=== PATIENT | female | born 1945 | race Caucasian/White ===

== ENCOUNTER 2022-07-24 12:02 | Inpatient (IN) | payer OTHER, MEDICAID ==
[~2022-07-24] VITALS: Ht 167.6 cm; Wt 65.8 kg
[2022-07-24 12:03] VITALS: BP 149/67
--- NOTE | 2022-07-24 12:04 | NUR ---
BIBA BLS TO ER BED 4
--- NOTE | 2022-07-24 12:20 | NUR ---
Pt A&O x4, complain of weakness in right side and pain over the whole body 3/10 since yesterday, tingling in the right leg, PERRL, brisk, neuro exam grossly normal, bilat hand custom grinder 4/5, adamaris leg push and pull 5/5, no facial asymmetry, speech clear, sr on cm, O2 sat 96%, BP 149/67, HR 90. no headache
[2022-07-24] MEDS ORDERED: NACL 0.9% 500 ML IV ONE (13:00)
[2022-07-24 13:52] LABS: BASOPHILS % (AUTO) 0.6 % (0.0-2.0); EOSINOPHILS # (AUTO) 0.1 K/uL (0-0.4); EOSINOPHILS % (AUTO) 0.8 % (0.0-4.0); HEMOGLOBIN 12.3 g/dL (12.0-16.0); LYMPHOCYTES # (AUTO) 1.5 K/uL (2.5-16.5); LYMPHOCYTES % (AUTO) 19.7 % (20.5-51.1); MEAN CORPUSCULAR HEMOGLOBIN 29 pg (27-31); MEAN CORPUSCULAR HGB CONC 33 g/dL (33-37); MEAN CORPUSCULAR VOLUME 85.8 fL (80-94); MONOCYTES # (AUTO) 0.5 K/uL (0.8-1.0); MONOCYTES % (AUTO) 6.6 % (1.7-9.3); NEUTROPHILS # (AUTO) 5.4 K/uL (1.8-7.7); NEUTROPHILS % (AUTO) 72.3 % (42.2-75.2); PLATELET COUNT (AUTO) 215 K/uL (140-450); RED BLOOD CELL COUNT(AUTO) 4.31 MIL/uL (4.20-5.40); RED CELL DISTRIBUTION WIDTH 15.2 % (11.6-13.7); WHITE BLOOD COUNT (AUTO) 7.5 K/uL (4.8-10.8)
[2022-07-24 14:29] LABS: ALBUMIN 3.1 g/dL (3.4-5.0); ANION GAP 8.6 (8-16); ASPARTATE AMINOTRANSFERASE 23 U/L (15-37); CARBON DIOXIDE 33.2 mmol/L (21-32); CHLORIDE 105 mmol/L (98-107); CREATININE 1.1 mg/dL (0.6-1.3); GLUCOSE 178 mg/dL (74-106); MAGNESIUM 1.6 mg/dL (1.8-2.4); PHOSPHORUS 3.1 mg/dL (2.5-4.9); POTASSIUM 3.8 mmol/L (3.5-5.1); SODIUM SERUM 143 mmol/L (136-145); TOTAL BILIRUBIN 0.4 mg/dL (0.0-1.0); UREA NITROGEN, BLOOD 26 mg/dL (7-18)
[2022-07-24 16:36] LABS: APPEARANCE,URINE CLEAR (CLEAR); BILIRUBIN,URINE NEGATIVE (NEGATIVE); BLOOD, URINE TRACE-I (NEGATIVE); COLOR,URINE YELLOW (YELLOW); LEUKOCYTE ESTERASE ,URINE NEGATIVE (NEGATIVE); NITRITE, URINE NEGATIVE (NEGATIVE); UGLUCOSE NEGATIVE (NEGATIVE)
[2022-07-24 17:07] LABS: RBC,URINE 0-5 /HPF (0-5)
[2022-07-24 17:08] LABS: TRICHOMONAS,URINE None Seen /HPF (None Seen); YEAST,URINE None Seen /HPF (None Seen)
[2022-07-24] MEDS ORDERED: POTASSIUM CHLORIDE 10 MEQ TABER PO PRN (17:15)
[2022-07-24] MEDS ORDERED: LORazepam 2 MG/ML VIAL IVP PRN (17:15)
[2022-07-24] MEDS ORDERED: DOCUSATE SODIUM 100 MG GELCAP PO PRN (17:15)
[2022-07-24] MEDS ORDERED: ONDANSETRON 4 MG/2 ML VIAL IVP PRN (17:15)
[2022-07-24] MEDS ORDERED: MAG SULF 2000 MG/WATER PREMIX 50 ML IV PRN (17:15)
[2022-07-24] MEDS ORDERED: MORPHINE SULFATE 2 MG/ML SYR IVP PRN (17:15)
[2022-07-24] MEDS ORDERED: ZOLPIDEM 10 MG TAB PO PRN (17:15)
[2022-07-24] MEDS ORDERED: ACETAMINOPHEN 325 MG TAB PO PRN (17:15)
[2022-07-24] MEDS ORDERED: GLIP5TER PO (17:22)
[2022-07-24] MEDS ORDERED: ATOR40TA PO (17:27)
[2022-07-24] MEDS ORDERED: FLO.1 PO (17:27)
[2022-07-24] MEDS ORDERED: DOXY-487 PO (17:29)
[2022-07-24] MEDS ORDERED: AMLO5TAB PO (17:29)
[2022-07-24] MEDS ORDERED: CRAN450T5 PO (17:31)
[2022-07-24] MEDS ORDERED: ESCI20TA PO (17:31)
--- NOTE | 2022-07-24 19:16 | NUR ---
Received report from SUMAYA Alonzo and continue care of patient.
--- NOTE | 2022-07-24 20:14 | NUR ---
Patient will be admitted to care of Dr. Macedo. Admited to TELE. Will go to room 110B. Belongings list completed. Report to SUMAYA An.
--- NOTE | 2022-07-24 20:25 | NUR ---
HAND-OFF REPORT RECEIVED FROM JULY RN. ADMITTED TO ROOM 110B PER SERVICES OF MD HUDSON. C/C RIGHT SIDE WEAKNESS. DX TIA. ANOX4 THOUGH HX OF ALZHEIMERS, DEMENTIA AND UTI. NSR PER DIESEL TRUCK CRANE OPERATOR. DENIES ALL PAIN. 20 G LAC/SL. CT SCAN OF HEAD NEGATIVE. MRSA SPECIMEN OBTAINED. VSS. CONT TO MONITOR. BED IN LOWEST POSITION AND CONTROLS WITHIN EASY REACH.
[2022-07-24 20:26] VITALS: BP 146/65
[2022-07-25] VITALS: BP 140/67
[2022-07-25 04:00] VITALS: BP 138/65
[2022-07-25 06:23] LABS: ANION GAP 7.6 (8-16); CARBON DIOXIDE 33.6 mmol/L (21-32); CHLORIDE 105 mmol/L (98-107); GLUCOSE 107 mg/dL (74-106); POTASSIUM 3.2 mmol/L (3.5-5.1); SODIUM SERUM 143 mmol/L (136-145); UREA NITROGEN, BLOOD 17 mg/dL (7-18)
[2022-07-25 06:49] LABS: BASOPHILS # (AUTO) 0.1 K/uL (0.00-0.22); BASOPHILS % (AUTO) 0.8 % (0.0-2.0); EOSINOPHILS # (AUTO) 0.1 K/uL (0-0.4); EOSINOPHILS % (AUTO) 2.2 % (0.0-4.0); HEMATOCRIT 39.9 % (36-48); HEMOGLOBIN 13.4 g/dL (12.0-16.0); LYMPHOCYTES # (AUTO) 1.7 K/uL (2.5-16.5); LYMPHOCYTES % (AUTO) 27.3 % (20.5-51.1); MEAN CORPUSCULAR HEMOGLOBIN 29 pg (27-31); MEAN CORPUSCULAR HGB CONC 34 g/dL (33-37); MEAN CORPUSCULAR VOLUME 85.7 fL (80-94); MONOCYTES # (AUTO) 0.5 K/uL (0.8-1.0); MONOCYTES % (AUTO) 8.4 % (1.7-9.3); NEUTROPHILS # (AUTO) 3.8 K/uL (1.8-7.7); NEUTROPHILS % (AUTO) 61.3 % (42.2-75.2); PLATELET COUNT (AUTO) 209 K/uL (140-450); RED BLOOD CELL COUNT(AUTO) 4.66 MIL/uL (4.20-5.40); RED CELL DISTRIBUTION WIDTH 15.2 % (11.6-13.7); WHITE BLOOD COUNT (AUTO) 6.3 K/uL (4.8-10.8)
--- NOTE | 2022-07-25 07:20 | NUR ---
PATIENT HAS BEEN SCREENED AND CATEGORIZED MODERATE NUTRITION RISK. PATIENT WILL BE SEEN WITHIN 3-5 DAYS OF ADMISSION. 07/24/22-07/29/[address]
--- NOTE | 2022-07-25 07:30 | NUR ---
ACU-CHECK 113 PRIOR TO BREAKFAST. ASYMPTOMATIC. HAND-OFF REPORT TO ELIEZER SHELL FOR CONTINUITY OF CARE. NO DIZZINESS THIS SHIFT WITH STANDBY ASSIST BRP. MOVES ALL EXTREMITIES WELL. ALTHOUGH STATES RIGHT SIDE WEAKNESS ASSISTANT IN NURSING AND PEDAL PUSHES EQUALLY STRONG. TO BE NOTED PT STATED HX OF ATTEMPTED SUICIDE X2 BY HANGING AND PILLS WHEN 28 AND 33 YRS OLD. PT IS NOW 77 WITHOUT FURTHER THOUGHTS OR ATTEMPTS. CONT. TO MONITOR AND ASSIST. HAND-OFF REPORT TO ELIEZER FOR CONTINUITY OF CARE.
[2022-07-25 08:00] VITALS: BP 145/68
[2022-07-25] MEDS: ATORVASTATIN 20 MG TAB PO SCH (08:53)
[2022-07-25] MEDS: ASPIRIN 81 MG TAB.CHEW PO SCH (08:53)
[2022-07-25 12:00] VITALS: BP 143/64
[2022-07-25 16:00] VITALS: BP 153/76
--- NOTE | 2022-07-25 18:44 | NUR ---
PATIENT IS ADMITTED FOR TRANSIENT ISCHEMIC ATTACK (TIA) D/T RECENT NEAR SYNCOPE/DIZZINESS W/ R. SIDE WEAKNESS. NURSE WITNESS THAT PATIENT AMBULATING TO BATHROOM W/ NO BALANCE ISSUE BUT NURSE DID NOTICE THAT PATIENT HAS SHORT MEMORY LOSE ISSUE/INTERMITTED CONFUSE. SBP RUNNIG FROM 140S TO 150S, ACCUCHECK 159 AFTER DINNER. WILL CONTINUE TO MONITOR
--- NOTE | 2022-07-25 19:30 | NUR ---
RECEIVED REPORT FROM DAY SHIFT NURSE JASWINDER FOR CONTINUITY OF CARE. PATIENT IS A&O X4. PATIENT IS ON ROOM AIR, BREATHING IS NORMAL WITH SYMMETRICAL RISE AND FALL OF CHEST. IV IS A 20G LAC, NO FLUIDS RUNNING AT THIS TIME. PATIENT IS AWAKE LYING SEMI-FOWLERS IN BED. BED IS IN LOWEST POSITION, WHEELS LOCKED, CALL LIGHT IN PLACE. WILL CONTINUE TO OBSERVE PATIENT.
--- NOTE | 2022-07-25 19:34 | NUR ---
ENDORSE PATIENT IN STABLE CONDITION TO PM SHIFT NURSE WITH F/U FOR MESSAGE DR. HUDSON REGARDING TO PATIENT'S DM MEDICATION ISSUE
[2022-07-25 20:00] VITALS: BP 108/48
[2022-07-26] VITALS: BP 128/56
--- NOTE | 2022-07-26 01:30 | NUR ---
PATIENT HAS BEEN SLEEPING THROUGHOUT THE NIGHT; LYING IN A SEMI-ONEILL POSITION. BREATHING IS NORMAL WITH SYMMETRICAL RISE AND FALL OF CHEST. WILL CONTINUE TO OBSERVE PATIENT.
[2022-07-26 04:00] VITALS: BP 151/74
--- NOTE | 2022-07-26 05:00 | NUR ---
PATIENT SLEPT THROUGHOUT THE NIGHT. BREATHING IS NORMAL WITH SYMMETRICAL RISE AND FALL OF CHEST. WILL CONTINUE TO OBSERVE PATIENT.
[2022-07-26 06:32] LABS: BASOPHILS % (AUTO) 0.5 % (0.0-2.0); EOSINOPHILS # (AUTO) 0.2 K/uL (0-0.4); EOSINOPHILS % (AUTO) 3.1 % (0.0-4.0); HEMATOCRIT 39.2 % (36-48); HEMOGLOBIN 12.9 g/dL (12.0-16.0); LYMPHOCYTES # (AUTO) 1.6 K/uL (2.5-16.5); LYMPHOCYTES % (AUTO) 21.1 % (20.5-51.1); MEAN CORPUSCULAR HEMOGLOBIN 29 pg (27-31); MEAN CORPUSCULAR HGB CONC 33 g/dL (33-37); MEAN CORPUSCULAR VOLUME 86.4 fL (80-94); MONOCYTES # (AUTO) 0.7 K/uL (0.8-1.0); MONOCYTES % (AUTO) 8.6 % (1.7-9.3); NEUTROPHILS # (AUTO) 5.1 K/uL (1.8-7.7); NEUTROPHILS % (AUTO) 66.7 % (42.2-75.2); PLATELET COUNT (AUTO) 218 K/uL (140-450); RED BLOOD CELL COUNT(AUTO) 4.54 MIL/uL (4.20-5.40); WHITE BLOOD COUNT (AUTO) 7.6 K/uL (4.8-10.8)
[2022-07-26] MEDS: BLOOD GLUCOSE MONITORING 1 DEV DEV FS SCH ×4 (06:59→20:15)
[2022-07-26 07:03] LABS: ANION GAP 7.9 (8-16); CARBON DIOXIDE 30.9 mmol/L (21-32); CHLORIDE 106 mmol/L (98-107); CREATININE 1.1 mg/dL (0.6-1.3); GLUCOSE 111 mg/dL (74-106); POTASSIUM 3.8 mmol/L (3.5-5.1); SODIUM SERUM 141 mmol/L (136-145); UREA NITROGEN, BLOOD 22 mg/dL (7-18)
--- NOTE | 2022-07-26 07:40 | NUR ---
ENDORSED TO DAY SHIFT NURSE JASWINDER FOR CONTINUITY OF CARE. PATIENT IS STABLE.
[2022-07-26 08:00] VITALS: BP 138/54
[2022-07-26] MEDS: ATORVASTATIN 20 MG TAB PO SCH (09:16)
[2022-07-26] MEDS: ASPIRIN 81 MG TAB.CHEW PO SCH (09:16)
[2022-07-26] MEDS ORDERED: MECLIZINE 25 MG TAB PO PRN (10:35)
[2022-07-26] MEDS ORDERED: POTASSIUM CHLORIDE 10 MEQ TABER PO PRN (10:35)
[2022-07-26] MEDS ORDERED: MAG SULF 2000 MG/WATER PREMIX 50 ML IV PRN (10:35)
[2022-07-26] MEDS: INSULIN LISPRO SLIDING SCALE 100 UNITS/ML VIAL SUBQ PRN ×2 (11:55→20:19)
[2022-07-26 12:00] VITALS: BP 135/59
--- NOTE | 2022-07-26 12:05 | NUR ---
DC PLANN[age] YRS OLD FEMALE PATIENT WAS ADMITTED FROM ASSISTED LIVING ([facility]) WITH A DX OF TIA. PATIENT HAS A HX OF HTN, HLD AND DM. CT HEAD SHOWED NO ACUTE INTRACRANIAL HEMORRHAGE. RAPID COVID TEST NEGATIVE. CONTINUED HOME MEDS. CONSULTED WITH NEURO . DC ABDIEL TO RETURN TO ASSISTED LIVING WHEN STABLE. CM TO FOLLOW. Addendum: 07/27/22 at 1632 by CONCEPCIÓN KOCH CM DC PLANNING MRI OF BRAIN WITH OUT CONTRAST DONE AT [facility].CONSTANCE BECKER READ THE OFFICIAL RESULT AND IS NEGATIVE.PATIENT TO GO BACK TO [facility].TALKED TO NICOLE WATTS.ASSISTED LIVING TO ARRANGE FOR HOME PT.ORDER FAXED TO .
--- NOTE | 2022-07-26 12:52 | NUR ---
DC PLANNING ASSESSMENT COMPLETE PLEASE REFER TO ASSESSMENT FOR ADDITIONAL DETAILS ATTEMPTED TO MEET WITH PT AT BEDSIDE, HOWEVER, PT SLIGHTLY CONFUSED AND STRUGGLED TO REMEMBER WHERE SHE WAS. PT DENIES RESIDING AT [facility]. OUTREACHED TO PT PUBLIC GUARDIAN TO GATHER COLLAT INFO HOWEVER, UNAVAILABLE. MESSAGE LEFT REQUESTING A RETURN PHONE CALL. COLLAT INFO GATHERED FROM [facility], KULWINDER. PT IS A 77 YR OLD FEMALE ADMITTED TO [facility], ASSISTED LIVING WITH DX OF TIA. PT IS REPORTED TO [employer] [facility]WW AND IS REPORTS TO COMPLETE ADL'S WITH MINIMAL ASSISTANCE AND TYPICALLY ONLY REQUIRES VERBAL REMINDERS. PT IS RESIDENT OF [facility], RESIDENT SINCE 10/02' PATIENT IS UNDER THE CARE OF [facility] PUBLIC GUARDIAN, HILLARY SUAREZ, . MS THORNTON IS REPORTED TO PROVIDE ALL MEDICAL CONSENTS REQUIRED. KULWINDER REPORTS TENTATIVE DC PLAN IS FOR PT TO RETURN TO [facility], ONCE CLEARED MEDICALLY BY PHYSICIAN. KULWINDER REPORTS FACILITY OCCASIONALLY PROVIDES TRANSPORTATION, HOWEVER, HOSPITAL TYPICALLY ARRANGES TRANSPORT WHEN PT RETURNS. SW TO ENDORSE TO CM. Addendum: 07/26/22 at 1253 by Ale BAILEY Amended: Links added.
--- NOTE | 2022-07-26 14:26 | NUR ---
P.T. NOTES P.T. EVAL COMPLETED; REFER TO EVAL FOR DETAILS.
[2022-07-26 16:00] VITALS: BP 115/40
--- NOTE | 2022-07-26 19:30 | NUR ---
ENDORSE PATIENT IN STABLE CONDITION AFTER NEUROLOGIST, DR. CASTELLON SEE PATIENT AND PT CLARIFY ORDER PRESENT.
[2022-07-26 20:00] VITALS: BP 107/49
[2022-07-27] VITALS: BP 162/147
--- NOTE | 2022-07-27 01:00 | NUR ---
PATIENT HAS SLEPT THROUGHOUT THE NIGHT. BREATHING IS NORMAL WITH SYMMETRICAL RISE AND FALL OF CHEST. WILL CONTINUE TO OBSERVE PATIENT.
[2022-07-27 04:00] VITALS: BP 147/63
--- NOTE | 2022-07-27 05:00 | NUR ---
PATIENT HAS SLEPT THROUGHOUT THE NIGHT. BREATHING IS NORMAL WITH SYMMETRICAL RISE AND FALL OF CHEST. WILL CONTINUE TO OBSERVE PATIENT.
[2022-07-27 06:28] LABS: ANION GAP 9.5 (8-16); BASOPHILS % (AUTO) 0.7 % (0.0-2.0); CARBON DIOXIDE 31.6 mmol/L (21-32); CHLORIDE 107 mmol/L (98-107); CREATININE 1.1 mg/dL (0.6-1.3); EOSINOPHILS # (AUTO) 0.3 K/uL (0-0.4); EOSINOPHILS % (AUTO) 4.9 % (0.0-4.0); GLUCOSE 111 mg/dL (74-106); LYMPHOCYTES # (AUTO) 1.9 K/uL (2.5-16.5); LYMPHOCYTES % (AUTO) 31.3 % (20.5-51.1); MEAN CORPUSCULAR HEMOGLOBIN 29 pg (27-31); MEAN CORPUSCULAR HGB CONC 33 g/dL (33-37); MEAN CORPUSCULAR VOLUME 86.6 fL (80-94); MONOCYTES # (AUTO) 0.5 K/uL (0.8-1.0); MONOCYTES % (AUTO) 8.7 % (1.7-9.3); NEUTROPHILS # (AUTO) 3.3 K/uL (1.8-7.7); NEUTROPHILS % (AUTO) 54.4 % (42.2-75.2); PLATELET COUNT (AUTO) 193 K/uL (140-450); POTASSIUM 4.1 mmol/L (3.5-5.1); RED BLOOD CELL COUNT(AUTO) 4.16 MIL/uL (4.20-5.40); RED CELL DISTRIBUTION WIDTH 15.4 % (11.6-13.7); SODIUM SERUM 144 mmol/L (136-145); UREA NITROGEN, BLOOD 28 mg/dL (7-18); WHITE BLOOD COUNT (AUTO) 6.1 K/uL (4.8-10.8)
[2022-07-27] MEDS: BLOOD GLUCOSE MONITORING 1 DEV DEV FS SCH ×3 (06:52→16:44)
--- NOTE | 2022-07-27 07:30 | NUR ---
RECEIVED REPORT FROM PLATE DRILLER NURSE. POC DISCUSSED. PT CURRENTLY RESTING WITH CHEST RISING AND FALLING. NO ACUTE S/S OF DISTRESS. ALL SAFETY MEASURES IN PLACE. CALL LIGHT WITHIN REACH.
--- NOTE | 2022-07-27 07:50 | NUR ---
ENDORSED TO DAY SHIFT NURSE NICOLETTE FOR CONTINUITY OF CARE. PATIENT IS STABLE.
[2022-07-27 08:00] VITALS: BP 127/63
[2022-07-27] MEDS: ASPIRIN 81 MG TAB.CHEW PO SCH (08:38)
[2022-07-27] MEDS: ATORVASTATIN 20 MG TAB PO SCH (08:38)
--- NOTE | 2022-07-27 09:58 | NUR ---
CALLED DANIELA (BYRD OF COURT) AND MELISSA SALGADO TO COMPLETE MRI QUESTIONNAIRE, SPOKE WITH NICOLE [phone].
--- NOTE | 2022-07-27 10:15 | NUR ---
MRI QUESTIONNAIRE PROVIDED TO SHANNA FOR MRI SET UP. SENIOR IOS SOFTWARE ENGINEER RN STATED TELEPHONE CONSENT CAN BE OBTAINED. RN TRAINING, DANIELA, , CALLED AND MADE AWARE REGARDING MRI. STATED TO CALLED [facility] CALLED AND RECEIVED ANSWERS FOR MRI QUESTIONNAIRE BY NICOLE HORNER.
[2022-07-27] MEDS: INSULIN LISPRO SLIDING SCALE 100 UNITS/ML VIAL SUBQ PRN (11:43)
[2022-07-27 12:00] VITALS: BP 123/60
--- NOTE | 2022-07-27 12:15 | NUR ---
EMR HAS PICKED UP PT TO TAKE FOR MRI VIA GURNEY. PT IN STABLE CONDITION.
--- NOTE | 2022-07-27 14:30 | NUR ---
PT HAS ARRIVED FROM MRI VIA EMR [employer] [facility]. PT IS IN STABLE CONDITION AND EATING HER LUNCH. VITAL SIGNS ARE B/P 124/58, HR 87, TEMP 97.9, RR 18, OX 92.
[2022-07-27] MEDS ORDERED: ATOR20TA40 PO (14:56)
[2022-07-27] MEDS ORDERED: ASPI81CT95 PO (14:56)
--- NOTE | 2022-07-27 16:13 | NUR ---
CALLED CONSERVATOR DANIELA THORNTON AND LEFT A VOICE MESSAGE LETTING HER KNOW THAT PT IS BEING DISCHARGED TO [facility] AND HER MRI CAME BACK NEGATIVE.
--- NOTE | 2022-07-27 16:19 | NUR ---
CONTACTED NICOLE AT [place] AND INFORMED HER PT IS BEING DISCHARGED TODAY AND WILL BE SENT BACK TO [place]. NICOLE IS AWARE OF HER ARRIVAL.
--- NOTE | 2022-07-27 17:10 | NUR ---
PT HAS BEEN DISCHARGED WITH TRANSPORT PERSONNEL TO [facility]. IV REMOVED, TELE MONITOR PLACED BACK MONITOR ROOM. ALL DISCHARGE INSTRUCTIONS PROVIDED, PAPERWORK SIGNED. ALL QUESTIONS ANSWERED. ALL BELONGINGS IN POSSESSION. IN STABLE CONDITION.
== END 2022-07-27 17:10 | disposition home or self-care (01) | DRG 73 ==
LOC: MED 12:02 → MTU 17:15
PROVIDERS: ADMIT Family Medicine; ATTEND Family Medicine
DX: G90.9 Disorder of the autonomic nervous system, unspecified (principal); N17.0 Acute kidney failure with tubular necrosis; E46 Unspecified protein-calorie malnutrition; I10 Essential (primary) hypertension; Z20.822 Contact with and (suspected) exposure to COVID-19; Z68.23 Body mass index [BMI] 23.0-23.9, adult; E78.5 Hyperlipidemia, unspecified; E11.9 Type 2 diabetes mellitus without complications; E87.6 Hypokalemia; E86.0 Dehydration; E83.42 Hypomagnesemia
CPT/HCPCS: 36415; 70450; 80048; 80053; 81001; 82948; 83036; 83735; 84100; 85025; 87081; 93005; 93880; 96360; 96361; 97112; 97116; 97530; 99285; C1758; J3475; Q0092; Q9967